=== PATIENT | female | born 1995 | race Caucasian/White ===

== ENCOUNTER 2016-05-03 10:55 | Emergency (ER) | payer OTHER ==
--- NOTE | 2016-05-03 11:13 | ER Document Report ---
ED Medical Screen (RME) - General Stated Complaint: FEVER Notes: yesterday onset fever, chills, vomiting, headache, body aches did receive an influenza vaccine I have greeted and performed a rapid initial assessment of this patient. A comprehensive ED assessment and evaluation of the patient, analysis of test results and completion of the medical decision making process will be conducted by additional ED providers. TRAVEL OUTSIDE OF THE [place] IN LAST 30 DAYS: No - Related Data Allergies/Adverse Reactions: sulfamethoxazole [From Bactrim] Allergy (Verified 05/03/16 11:12) trimethoprim [From Bactrim] Allergy (Verified 05/03/16 11:12) Past Medical History - Immunizations Immunizations up to date: Yes Hx Diphtheria, Pertussis, Tetanus Vaccination: Yes
--- NOTE | 2016-05-03 13:15 | ER Document Report ---
ED General - General Chief Complaint: Flu Symptoms Stated Complaint: FEVER Mode of Arrival: Ambulatory Information source: Patient Notes: 21-year-old female who has received the vaccination for influenza this year presents with complaints of generalized body aches fevers. Patient notes that her son had similar complaints. Patient denies any nausea vomiting. Patient is 13 weeks TRAVEL OUTSIDE OF THE [place] IN LAST 30 DAYS: No - HPI Onset: Yesterday Onset/Duration: Sudden Quality of pain: Achy Severity: Mild Pain Level: Denies Associated symptoms: Body/muscle aches, Nonproductive cough, Fever Exacerbated by: Denies Relieved by: Denies Similar symptoms previously: No Recently seen / treated by doctor: No - Related Data Allergies/Adverse Reactions: sulfamethoxazole [From Bactrim] Allergy (Verified 05/03/16 11:12) trimethoprim [From Bactrim] Allergy (Verified 05/03/16 11:12) Past Medical History - Social History Smoking Status: Never Smoker Cigarette use (# per day): No Chew tobacco use (# tins/day): No Smoking Education Provided: No Frequency of alcohol use: None Drug Abuse: None Family History: Reviewed & Not Pertinent Patient has suicidal ideation: No Patient has homicidal ideation: No Renal/ Medical History: Denies: Hx Peritoneal Dialysis Surgical Hx: Negative - Immunizations Immunizations up to date: Yes Hx Diphtheria, Pertussis, Tetanus Vaccination: Yes Review of Systems - Review of Systems Notes: REVIEW OF SYSTEMS: CONSTITUTIONAL : admits ot fevers EENT: Denies eye, ear, throat, or mouth pain or symptoms. Denies nasal or sinus congestion or discharge. Denies throat, tongue, or mouth swelling or difficulty swallowing. CARDIOVASCULAR: Denies chest pain. Denies palpitations or racing or irregular heart beat. Denies ankle edema. RESPIRATORY: admits to intermittent productive cough GASTROINTESTINAL: Denies abdominal pain or distention. Denies nausea, vomiting , or diarrhea. Denies blood in vomitus, stools, or per rectum. Denies black, tarry stools. Denies constipation. GENITOURINARY: Denies difficulty urinating, painful urination, burning, frequency, blood in urine, or discharge. FEMALE GENITOURINARY: Denies vaginal bleeding, heavy or abnormal periods, irregular periods. Denies vaginal discharge or odor. MUSCULOSKELETAL: admits to body aches SKIN: Denies rash, lesions or sores. HEMATOLOGIC : Denies easy bruising or bleeding. LYMPHATIC: Denies swollen, enlarged glands. NEUROLOGICAL: Denies confusion or altered mental status. Denies passing out or loss of consciousness. Denies dizziness or lightheadedness. Denies headache. Denies weakness or paralysis or loss of use of either side. Denies problems with gait or speech. Denies sensory loss, numbness, or tingling. Denies seizures. PSYCHIATRIC: Denies anxiety or stress. Denies depression, suicidal ideation, or homicidal ideation. ALL OTHER SYSTEMS REVIEWED AND NEGATIVE. Dictation was performed using Intense voice recognition software PHYSICAL EXAMINATION: GENERAL: Well-appearing, well-nourished and in no acute distress. HEAD: Atraumatic, normocephalic. EYES: Pupils equal round and reactive to light, extraocular movements intact, conjunctiva are normal. ENT: Nares patent, oropharynx clear without exudates. Moist mucous membranes. NECK: Normal range of motion, supple without lymphadenopathy LUNGS: Breath sounds clear to auscultation bilaterally and equal. No wheezes rales or rhonchi. HEART: Regular rate and rhythm without murmurs ABDOMEN: Soft, nontender, nondistended abdomen. No guarding, no rebound. No masses appreciated. Female : deferred Musculoskeletal: Normal range of motion, no pitting or edema. No cyanosis. NEUROLOGICAL: Cranial nerves grossly intact. Normal speech, normal gait. Normal sensory, motor exams PSYCH: Normal mood, normal affect. SKIN: Warm, Dry, normal turgor, no rashes or lesions noted. Physical Exam - Vital signs Vitals: Temp Pulse Resp BP Pulse Ox 97.8 F 93 18 110/67 100 05/03/16 11:13 05/03/16 11:13 05/03/16 11:13 05/03/16 11:13 05/03/16 11:13 Course - Re-evaluation Re-evalutation: 05/03/16 13:12 Patient unfortunately is positive for flu, she will be started on Tamiflu otherwise stable for discharge, vital signs are stable After performing a Medical Screening Examination, I estimate there is LOW risk for ACUTE CORONARY SYNDROME, RESPIRATORY FAILURE, SEPSIS OR MENINGITIS, thus I consider the discharge disposition reasonable. The patient and I have discussed the diagnosis and risks, and we agree with discharging home with close follow- up. We also discussed returning to the Emergency Department immediately if new or worsening symptoms occur. We have discussed the symptoms which are most concerning (e.g., changing or worsening pain, trouble swallowing or breathing, neck stiffness, fever) that necessitate immediate return. - Vital Signs Vital signs: Temp Pulse Resp BP Pulse Ox 97.8 F 93 18 110/67 100 05/03/16 11:13 05/03/16 11:13 05/03/16 11:13 05/03/16 11:13 05/03/16 11:13 Discharge - Discharge Clinical Impression: Influenza A, Body aches Condition: Stable Disposition: HOME, SELF-CARE Instructions: Influenza ([facility]) [id number] Additional Instructions: Follow up with your physician tomorrow for further care or return to the ED IMMEDIATELY if symptoms worsen or new concerns occur Prescriptions: Oseltamivir Phosphate [Tamiflu 75 mg Capsule] 75 mg PO BID #10 capsule
[2016-05-03 13:31] LABS: APPEARANCE,URINE SLIGHTLY-CLOUDY; BILIRUBIN,URINE NEGATIVE (NEGATIVE); GLUCOSE, URINE NEGATIVE (NEGATIVE); KETONES,URINE NEGATIVE (NEGATIVE); LEUKOCYTE ESTERASE,URINE MODERATE (NEGATIVE); NITRITE,URINE NEGATIVE (NEGATIVE); PROTEIN,URINE NEGATIVE (NEGATIVE); URINE SPECIFIC GRAVITY 1.017; UROBILINOGEN,URINE NEGATIVE mg/dL (<2.0)
[2016-05-03 13:41] VITALS: BP 101/54
== END 2016-05-03 13:47 | disposition home or self-care (01) ==
LOC: ER 10:55
DX: O23.41 Unspecified infection of urinary tract in pregnancy, first trimester (principal); O98.511 Other viral diseases complicating pregnancy, first trimester; J09.X2 Influenza due to identified novel influenza A virus with other respiratory manifestations; R50.9 Fever, unspecified; M79.1 Myalgia; Z3A.13 13 weeks gestation of pregnancy
CPT/HCPCS: 81001; 87086; 87804; 99283

== ENCOUNTER 2016-09-22 11:54 | Outpatient (CLI) | payer OTHER ==
[2016-09-22 12:48] LABS: APPEARANCE,URINE SLIGHTLY-CLOUDY; BILIRUBIN,URINE NEGATIVE (NEGATIVE); GLUCOSE, URINE NEGATIVE (NEGATIVE); KETONES,URINE NEGATIVE (NEGATIVE); LEUKOCYTE ESTERASE,URINE SMALL (NEGATIVE); NITRITE,URINE NEGATIVE (NEGATIVE); PROTEIN,URINE 30 mg/dL (NEGATIVE); URINE SPECIFIC GRAVITY 1.012; UROBILINOGEN,URINE NEGATIVE mg/dL (<2.0)
--- NOTE | 2016-09-22 12:59 | Non Stress Test Report ---
Non Stress Test Datetime Report Generated by CPN: 09/22/2016 12:59 DEMOGRAPHIC EGA NST: 32.6 INDICATION Indication for Study: Ordered by Provider MONITORING Monitor Explained: Monitor Explained; Test Explained; Patient Verbalized Understanding Time on Monitor: 09/22/2016 12:21 Time off Monitor: 09/22/2016 12:57 NST Duration: 36 NST INTERVENTIONS NST Interventions: PO Hydration Physician Notified NST: C Coreas CNM BABY A: [id number] BABY A Movement : Present Contraction Frequency : x0 FHR Baseline : 130 Accelerations : Prolonged Decelerations : None Variability : Moderate 6-25bpm NST Review: Meets Criteria for Reactive NST NST Review and Verified By : Yvonne Crouch RN NST Results: Reactive NST REPORT Report Trigger: Send Report
[2016-09-22 13:33] LABS: URINE BARBITURATES SCREEN NEGATIVE; URINE METHADONE SCREEN NEGATIVE; URINE OPIATES LOW NEGATIVE; URINE PHENCYCLIDINE SCREEN NEGATIVE
== END 2016-09-22 13:05 | disposition home or self-care (01) ==
LOC: LC 11:54
PROVIDERS: ATTEND Obstetrics & Gynecology
PROC: 4A1HXCZ Monitoring of Products of Conception, Cardiac Rate, External Approach (ICD-10-PCS; principal; 2016-09-22)
DX: O99.89 Other specified diseases and conditions complicating pregnancy, childbirth and the puerperium (principal); M54.9 Dorsalgia, unspecified; Z91.040 Latex allergy status; Z3A.32 32 weeks gestation of pregnancy
CPT/HCPCS: 59025; 80307; 81001

== ENCOUNTER 2016-10-25 15:47 | Outpatient (CLI) | payer OTHER ==
[2016-10-25 16:41] LABS: APPEARANCE,URINE CLOUDY; BILIRUBIN,URINE NEGATIVE (NEGATIVE); GLUCOSE, URINE 50 mg/dL (NEGATIVE); KETONES,URINE NEGATIVE (NEGATIVE); LEUKOCYTE ESTERASE,URINE TRACE (NEGATIVE); NITRITE,URINE NEGATIVE (NEGATIVE); PROTEIN,URINE NEGATIVE (NEGATIVE); URINE SPECIFIC GRAVITY 1.025; UROBILINOGEN,URINE NEGATIVE mg/dL (<2.0)
--- NOTE | 2016-10-25 16:54 | Non Stress Test Report ---
Non Stress Test Datetime Report Generated by CPN: 10/25/2016 16:54 DEMOGRAPHIC EGA NST: 37.4 INDICATION Indication for Study: Ordered by Provider MONITORING Monitor Explained: Monitor Explained; Test Explained; Patient Verbalized Understanding Time on Monitor: 10/25/2016 16:04 Time off Monitor: 10/25/2016 16:54 NST Duration: 50 NST INTERVENTIONS NST Interventions: PO Hydration; Reposition Patient Physician Notified NST: H. Dion, CNM BABY A: [id number] BABY A Movement : Present Contraction Frequency : none FHR Baseline : 135 Accelerations : 15X15 Decelerations : None Variability : Moderate 6-25bpm NST Review: Meets Criteria for Reactive NST NST Review and Verified By : ERICKA Denny Results: Reactive NST REPORT Report Trigger: Send Report
[2016-10-25 17:03] LABS: URINE BARBITURATES SCREEN NEGATIVE; URINE METHADONE SCREEN NEGATIVE; URINE OPIATES LOW NEGATIVE; URINE PHENCYCLIDINE SCREEN NEGATIVE
== END 2016-10-25 17:08 | disposition home or self-care (01) ==
LOC: LC 15:47
PROVIDERS: ATTEND Specialist
PROC: 4A1HXCZ Monitoring of Products of Conception, Cardiac Rate, External Approach (ICD-10-PCS; principal; 2016-10-25)
DX: O99.283 Endocrine, nutritional and metabolic diseases complicating pregnancy, third trimester (principal); E86.0 Dehydration; Z3A.37 37 weeks gestation of pregnancy
CPT/HCPCS: 59025; 80307; 81005

== ENCOUNTER 2016-11-12 11:19 | Inpatient (IN) | payer OTHER ==
[2016-11-12 10:05] LABS: APPEARANCE,URINE SLIGHTLY-CLOUDY; BILIRUBIN,URINE NEGATIVE (NEGATIVE); GLUCOSE, URINE NEGATIVE (NEGATIVE); KETONES,URINE NEGATIVE (NEGATIVE); LEUKOCYTE ESTERASE,URINE TRACE (NEGATIVE); NITRITE,URINE NEGATIVE (NEGATIVE); PROTEIN,URINE NEGATIVE (NEGATIVE); URINE SPECIFIC GRAVITY 1.008; UROBILINOGEN,URINE NEGATIVE mg/dL (<2.0)
[2016-11-12 10:24] LABS: URINE BARBITURATES SCREEN NEGATIVE; URINE METHADONE SCREEN NEGATIVE; URINE OPIATES LOW NEGATIVE; URINE PHENCYCLIDINE SCREEN NEGATIVE
[2016-11-12 11:57] LABS: ABSOLUTE EOSINOPHILS # (AUTO) 0.1 10^3/uL (0.0-0.6); ABSOLUTE LYMPHOCYTES (AUTO) 1.7 10^3/uL (0.5-4.7); ABSOLUTE MONOCYTES (AUTO) 0.8 10^3/uL (0.1-1.4); ABSOLUTE NEUT (AUTO) 7.3 10^3/uL (1.7-8.2); BASOPHILS % (AUTO) 0.4 % (0-2); EOSINOPHILS % (AUTO) 1.5 % (0-6); HEMATOCRIT 36.5 % (36.0-47.0); HEMOGLOBIN 12.4 g/dL (12.0-15.5); HGB HCT DIFFERENCE 0.7; MEAN CORPUSCULAR HEMOGLOBIN 30.7 pg (27.0-33.4); MEAN CORPUSCULAR HGB CONC 33.9 g/dL (32.0-36.0); MEAN CORPUSCULAR VOLUME 91 fl (80-97); MONOCYTES % (AUTO) 7.6 % (3-13); RED BLOOD COUNT 4.02 10^6/uL (3.72-5.28); RED CELL DISTRIBUTION WIDTH 13.5 % (11.5-14.0); SEGMENTED NEUTROPHILS % (AUTO) 73.5 % (42-78)
[2016-11-12] MEDS ORDERED: EPHEDRINE SULFATE INJ 50 MG/1 ML AMPULE ONE (14:52)
[2016-11-12] MEDS ORDERED: FENTANYL/BUPIVACAINE/NS/PF 200 MCG/100 ML RTUINJ EPI ONE (14:52)
[2016-11-12] MEDS ORDERED: BUPIVACAINE HCL 0.25 % INJ/PF (2.5 MG/1 ML) 30 ML VIAL ONE (14:53)
[2016-11-12] MEDS: RINGERS SOLUTION,LACTATED 1,000 ML IV PRN ×3 (15:32→19:36)
[2016-11-12] MEDS ORDERED: OXYTOCIN/NORMAL SALINE 20 UNIT/1,000 ML RTUINJ ONE (15:48)
[2016-11-12] MEDS ORDERED: MISOPROSTOL 0.2 MG TABLET ONE (16:35)
[2016-11-12] MEDS ORDERED: LIDOCAINE 1% INJ-PF (10 MG/ML) 30 ML SDV ONE (16:36)
[2016-11-12] MEDS ORDERED: DIPH/PERTUSS(ACELL)/TETANUS VAC/PF 0.5 ML SYR (>=10YO) IM PRN (17:05)
[2016-11-12] MEDS ORDERED: ZOLPIDEM TARTRATE 5 MG TABLET PO PRN (17:05)
[2016-11-12] MEDS ORDERED: BENZOCAINE/MENTHOL AEROSOL SPRAY 56 ML TOP PRN (17:05)
[2016-11-12] MEDS ORDERED: DIBUCAINE 1% OINTMENT 28 GM TP PRN (17:05)
[2016-11-12] MEDS ORDERED: OXYTOCIN/NORMAL SALINE 1,000 ML IV PRN (17:05)
[2016-11-12] MEDS ORDERED: MEASLES,MUMPS&RUBELLA VACC/PF 0.5 ML VIAL SUBCUT PRN (17:05)
--- NOTE | 2016-11-12 19:12 | Delivery Summary ---
Del Sum A-C Datetime Report Generated by CPN: 11/12/2016 19:12 DELIVERY PERSONNEL DELIVERY PERSONNEL: [id number] Delivery Doctor:: Alma Alva CNM Anesthesiologist:: Harsh Cohen MD Labor and Delivery Nurse:: [place] Simpson RNconcrete paving supervisor Nurse:: Kelly Espinoza RN Nursery Nurse:: Aneta Taveras RN Residential Appliance Repair Technician/OUTDOOR STUDIES DIRECTOR: Angle Talley CST Residential Appliance Repair Technician/OUTDOOR STUDIES DIRECTOR: Ana M Og, ST MATERNAL INFORMATION Delivery Anesthesia: Epidural Medications After Delivery: Pitocin Bolus-Please Comment; Pitocin Drip 20 Units/1000ml NSS Estimated Blood Loss (ml): 300 Maternal Complications: None Provider Comments: SVDVF OA, partial nuchal cord and compound left hand, delivered through cord. vigorous, to mothers abd. Cord clamped x 2 cut per Fob. Cord blood collected. Placenta with trailing membranes, manual exploration done. Fundus firmed, EBL 300 ml. Pitocin infusing. Mother and stable. LABOR SUMMARY EDC: 11/11/2016 00:00 No. Babies in Womb: 1 Attempted: No Labor Anesthesia: Epidural LABOR INFORMATION Reason for Induction: Not Applicable Onset of Labor: 11/12/2016 11:10 Complete Dilatation: 11/12/2016 16:27 Oxytocin: Augmentation Group B Beta Strep: negative Antibiotics # of Doses: 0 Antibiotics Time of Last Dose: n/a Name of Antibiotic Given: n/a Steroids Given: None Reason Steroids Not Administered: Not Applicable MEMBRANES Membranes Rupture Method: Artificial Rupture of Membranes: 11/12/2016 13:33 Length of Rupture (hr): 3.23 Amniotic Fluid Color: Clear Amniotic Fluid Amount: Moderate Amniotic Fluid Odor: Normal STAGES OF LABOR Stage 1 hr: 5 Stage 1 min: 17 Stage 2 hr: 0 Stage 2 min: 20 Stage 3 hr: 0 Stage 3 min: 8 Total Time in Labor hr: 5 Total Time in Labor min: 45 VAGINAL DELIVERY Episiotomy: Right Mediolateral Laceration Extension: N/A Laceration Type: Perineal Other Laceration: clitoral Laceration Repair: Not Applicable Laceration Repair Note: no repairs needed, very superficial lacs Sponge Count Correct: N/A Sharps Count Correct: N/A BABY A INFORMATION Delivery Date/Time: 11/12/2016 16:47 Method of Delivery: Vaginal Born in Route : No : N/A Forceps: N/A Vacuum Extraction: N/A Shoulder Dystocia : No PRESENTATION/POSITION BABY A Presentation: Cephalic Cephalic Presentation: Vertex Vertex Position: Left Occipital Anterior Breech Presentation: N/A PLACENTA INFORMATION BABY A Placenta Delivery Time : 11/12/2016 16:55 Placenta Method of Delivery: Spontaneous Placenta Status: Delivered SCORES BABY A Heart Rate 1 min: >100 bpm Resp Effort 1 min: Good Cry Reflex Irritability 1 min: Grimace Muscle Tone 1 min: Active Motion Color 1 min: Blue/Pale Resuscitation Effort 1 min: Tactile Stimulation SCORE 1 MIN: 7 Heart Rate 5 min: >100 bpm Resp Effort 5 min: Good Cry Reflex Irritability 5 min: Cough or Sneeze or Pulls Away Muscle Tone 5 min: Active Motion Color 5 min: Body [place], Extremities Blue Resuscitation Effort 5 min: N/A SCORE 5 MIN: 9 INFORMATION BABY A Gestational Age at Delivery: 40.1 Gestational Status: Full Term- 39- 40.6 Weeks Outcome : Liveborn Condition : Stable Sex: Female IDENTIFICATION BABY A Infant Verification Date/Time: 11/12/2016 17:10 ID Band Number: [id number] Mother's Name Verified: Yes RN Verifying Infant: Malik Espinoza RN/ Kat Simpson RN WEIGHT/LENGTH BABY A Infant Birthweight (gm): 3460 Weight (lb): 7 Weight (oz): 10 Length (in): 21.00 Infant Length (cm): 53.34 CORD INFORMATION BABY A No. Cord Vessels: 3 Nuchal Cord : partial nuchal Nuchal Cord- Other: Lt compound hand Cord Blood Taken: Yes-For Eval (Mom's Blood Type - or O+) Suction: Mouth; Nose ASSESSMENT BABY A Physical Findings at Delivery: Within Normal Limits Skin to Skin: Yes Skin to Skin Time (min): 2 Transferred To: Remains with Mother BABY B INFORMATION : N/A SIGNATURES Assignment: DO Zunilda Kitchen: with User ID: [email or web address] : with User ID: [email or web address] : I was personally available for consultation and serving as supervising physician for the [facility].
--- NOTE | 2016-11-12 20:14 | Admission Physical ---
Datetime Report Generated by CPN: 11/12/2016 20:13 CURRENT ADMISSION Chief Complaint: Uterine Contractions Indication for Induction: Not Applicable Admit Plan: Admit to Unit ALLERGIES Medication Allergies: Yes Medication Allergies: sulfamethoxazole (09/22/2016); trimethoprim (09/22/2016) Medication Allergies: sulfamethoxazole (05/03/2016); trimethoprim (05/03/2016) Latex: Latex Allergies Food Allergies: n/a Environmental Allergies: n/a OBSTETRICAL HISTORY EDC: 11/11/2016 00:00 : 2 Para: 1 Term: 1 : 0 SAB: 0 IAB: 0 Ectopic: 0 Livin Cesareans: 0 VBACs: 0 Multiple Births: 0 Gestational Diabetes: No Rh Sensitization: No Incompetent Cervix: No MARY: No Infertility: No ART Treatment: No Uterine Anomaly: No IUGR: No Hx Previous C/S: No Macrosomia: No Hx Loss/Stillborn: No PIH: No Hx : No Placenta Previa/Abruption: No Depression/PP Depression: No PTL/PROM: No Post Hemorrhage: No Current Procedures: Ultrasound; NST Obstetrical History Comments: G1- boy G2- current SEE RECORDS Alcohol: No Marijuana : No Cocaine: No Other Illicit Drugs: No Cigarettes: Never Smoker. [id number] MEDICAL HISTORY Diabetes: No Blood Transfusion: No Pulmonary Disease (Asthma, TB): No Breast Disease: No Hypertension: No Manager Chemistry Surgery: No Heart Disease: No Hosp/Surgery: No Autoimmune Disorder: No Anesthetic Complications: No Kidney Disease: No Abnormal Pap Smear: No Neuro/Epilepsy: No Psychiatric Disorders: No Other Medical Diseases: No Hepatitis/Liver Disease: No Significant Family History: No Varicosities/Phlebitis: No Trauma/Violence : No Thyroid Dysfunction: No INFECTIOUS HISTORY Gonorrhea: No Genital Herpes: No Chlamydia: No Tuberculosis: No Syphilis: No Hepatitis: No HIV/AIDS Exposure: No Rash or Viral Illness: No HPV: No PHYSICAL EXAM General: Normal HEENT: Deferred Neurologic: Normal Thyroid: Deferred Heart: Normal Lungs: Normal Breast: Deferred Back: Deferred Abdomen: Normal Genitourinary Exam: Normal Extremities: Normal DTRs: Deferred Pelvic Type: Adequate Vital Signs: Reviewed VAGINAL EXAM Dilatation: 5 Effacement: 80 Station: -1 MEMBRANES Membranes: Ruptured Amniotic Fluid Color: Clear FETUS A EGA: 40.1 Monitoring: External US FHR- Baseline: 135 Accelerations: 15X15 Decelerations: None Presentation: Vertex PLANS FOR LABOR AND DELIVERY Labor and Delivery: None Pain Management: Epidural Feeding Preference: Breast Benefit of Breast Feed Discussed: Yes Circumcision: N/A INFORMED CONSENT Assignment: Quique Ferreira DO Signature: with User ID: [email or web address] : with User ID: [email or web address]
[2016-11-12] MEDS: FERROUS SULFATE 325 MG TABLET PO SCH (20:48)
[2016-11-12] MEDS: DOCUSATE SODIUM 100 MG CAPSULE PO SCH (20:48)
[2016-11-12] MEDS: IBUPROFEN 800 MG TABLET PO SCH (21:39)
[2016-11-13] MEDS ORDERED: OXYCODONE-ACETAMINOPHEN 5-325 MG TABLET ONE (03:26)
[2016-11-13] MEDS: IBUPROFEN 800 MG TABLET PO SCH ×3 (06:00→21:12)
[2016-11-13 09:03] LABS: HEMATOCRIT 33.8 % (36.0-47.0); HEMOGLOBIN 11.5 g/dL (12.0-15.5); HGB HCT DIFFERENCE 0.7; MEAN CORPUSCULAR VOLUME 91 fl (80-97); RED CELL DISTRIBUTION WIDTH 13.6 % (11.5-14.0)
[2016-11-13] MEDS: DOCUSATE SODIUM 100 MG CAPSULE PO SCH ×2 (10:41→17:26)
[2016-11-13] MEDS: SENNOSIDES/DOCUSATE 8.6-50 MG 1 EACH TABLET PO SCH (10:42)
[2016-11-13] MEDS: FERROUS SULFATE 325 MG TABLET PO SCH ×2 (10:42→17:26)
[2016-11-13] MEDS: PRENATAL VITAMIN W-O CA NO5/FE FUMARATE/FA CAPSULE PO SCH (10:43)
--- NOTE | 2016-11-13 11:45 | PDOC PROGRESS REPORT ---
Subjective-OB Subjective: Post Delivery Day: 21 year old. Denies any needs at this time. Pt doing well, no problems. Reports light bleeding, regular diet and voiding well. Physical Exam (OB) Vital Signs: Temp Pulse Resp BP Pulse Ox 97.7 F 66 15 95/55 L 97 11/13/16 07:26 11/13/16 07:26 11/13/16 07:26 11/13/16 07:26 11/13/16 07:26 Intake & Output 11/12/16 11/13/16 11/14/16 06:59 06:59 06:59 Weight 68 kg - Lochia Lochia Amount: Small 10-25 ml Lochia Color: Rubra/Red - Abdomen Description: Soft, Round Hernia Present: No Fundal Description: Firm, Midline Fundal Height: u/u - u/2 Objective-Diagnostic Laboratory: 11/13/16 08:56 11/12/16 11/12/16 11/13/16 11:36 11:36 08:56 WBC 10.0 10.0 RBC 4.02 3.70 L Hgb 12.4 11.5 L Hct 36.5 33.8 L MCV 91 91 MCH 30.7 31.0 MCHC 33.9 34.0 RDW 13.5 13.6 Plt Count 184 141 L Seg Neutrophils % 73.5 Lymphocytes % 17.0 Monocytes % 7.6 Eosinophils % 1.5 Basophils % 0.4 Absolute Neutrophils 7.3 Absolute Lymphocytes 1.7 Absolute Monocytes 0.8 Absolute Eosinophils 0.1 Absolute Basophils 0.0 Blood Type O POSITIVE Antibody Screen NEGATIVE Assessment and Plan(PN) - Assessment and Plan (1) Vaginal delivery Is this a current diagnosis for this admission?: Yes - Time Spent with Patient Time with patient: Less than 15 minutes Medications reviewed and adjusted accordingly: Yes - Disposition Anticipated Discharge: Home Within: within 24 hours
[2016-11-14] MEDS: IBUPROFEN 800 MG TABLET PO SCH (06:04)
[2016-11-14 08:18] VITALS: BP 107/57
[2016-11-14] MEDS: PRENATAL VITAMIN W-O CA NO5/FE FUMARATE/FA CAPSULE PO SCH (09:31)
[2016-11-14] MEDS: SENNOSIDES/DOCUSATE 8.6-50 MG 1 EACH TABLET PO SCH (09:31)
[2016-11-14] MEDS: FERROUS SULFATE 325 MG TABLET PO SCH (09:31)
[2016-11-14] MEDS: DOCUSATE SODIUM 100 MG CAPSULE PO SCH (09:31)
--- NOTE | 2016-11-14 11:28 | PDOC DISCHARGE SUMMARY ---
Final Diagnosis Discharge Date: 11/14/16 - Final Diagnosis (1) Vaginal delivery Is this a current diagnosis for this admission?: Yes Discharge Data - Discharge Medication Home Medications: Pnv No.122/Iron/Folic Acid [ Multi Tablet] 1 tab PO DAILY 09/22/16 Reason(s) for Admission: Onset of Labor Intrapartum Procedure(s): Spontaneous Vaginal Delivery Complication(s): Laceration-Perineal, Other Laceration-Degree: 1st - Diagnosis Test Laboratory: Temp Pulse Resp BP Pulse Ox 97.7 F 66 15 95/55 L 97 11/13/16 07:26 11/13/16 07:26 11/13/16 07:26 11/13/16 07:26 11/13/16 07:26 11/12/16 11/12/16 09:23 11:36 RBC 4.02 Hgb 12.4 Hct 36.5 Urine Opiates Screen NEGATIVE - Discharge information/Instructions Discharge Activity: Balance Activity w/Rest, Pelvic Rest Discharge Diet: Regular Disposition: HOME, SELF-CARE Follow up with: [facility] in: 4, Weeks
== END 2016-11-14 12:10 | disposition home or self-care (01) | DRG 775 ==
LOC: LC 11:19 → LR 11:20 → 2S 19:48
PROVIDERS: ADMIT Obstetrics & Gynecology; ATTEND Obstetrics & Gynecology
PROC: 10E0XZZ Delivery of Products of Conception, External Approach (ICD-10-PCS; principal; 2016-11-12)
PROC: 0W8NXZZ Division of Female Perineum, External Approach (ICD-10-PCS; 2016-11-12)
PROC: 4A1HXCZ Monitoring of Products of Conception, Cardiac Rate, External Approach (ICD-10-PCS; 2016-11-12)
DX: O69.81X0 Labor and delivery complicated by cord around neck, without compression, not applicable or unspecified (principal); O70.0 First degree perineal laceration during delivery; O32.6XX0 Maternal care for compound presentation, not applicable or unspecified; Z37.0 Single live birth; Z3A.40 40 weeks gestation of pregnancy
CPT/HCPCS: 36415; 80307; 81005; 85025; 85027; 86592; 86850; 86900; 86901; 94760; J2590; J3490

== ENCOUNTER 2016-11-19 18:04 | Emergency (ER) | payer OTHER ==
[2016-11-19 18:08] VITALS: BP 117/70
--- NOTE | 2016-11-19 19:13 | ER Document Report ---
ED General - General Chief Complaint: Pain All Over Stated Complaint: COLD SWEATS,CHILLS,BODY ACHES Time Seen by Provider: 11/19/16 18:57 Mode of Arrival: Ambulatory Information source: Patient Notes: 21-year-old female presents to ED for body aches all over hot and cold flashes with sweats. States right this minute she feels like she is burning up but she does not have a fever. She states she had similar symptoms 3 years ago with her last child and at that time she had a UTI. She said that her milk is starting to decrease and last time her milk completely dried up with the last UTI. States she is also having pain whenever she needs to have a bowel movement just before she has a bowel movement and during the bowel movement and then the pain goes away. She denies any nausea or vomiting. TRAVEL OUTSIDE OF THE [place] IN LAST 30 DAYS: No - HPI Onset: Yesterday Onset/Duration: Gradual Quality of pain: Achy - Body aches Severity: Mild Pain Level: 2 Associated symptoms: Body/muscle aches, Chills, Sweating. denies: Fever, Nausea , Vomiting Exacerbated by: Other - when having a bm Relieved by: Denies Similar symptoms previously: Yes - 3 yrs ago with last child Recently seen / treated by doctor: Yes - childbirth 7 days ago - Related Data Allergies/Adverse Reactions: sulfamethoxazole [From Bactrim] Allergy (Verified 11/19/16 18:08) trimethoprim [From Bactrim] Allergy (Verified 11/19/16 18:08) Past Medical History - General Information source: Patient - Social History Smoking Status: Never Smoker Cigarette use (# per day): No Chew tobacco use (# tins/day): No Smoking Education Provided: No Frequency of alcohol use: None Drug Abuse: None Occupation: none Lives with: Family Family History: Arthritis, CAD, Hyperlipidemia, Hypertension Patient has suicidal ideation: No Patient has homicidal ideation: No - Past Medical History Cardiac Medical History: Reports: None Pulmonary Medical History: Reports: None EENT Medical History: Reports: None Neurological Medical History: Reports: None Endocrine Medical History: Reports: None Renal/ Medical History: Reports: None Malignancy Medical History: Reports: None GI Medical History: Reports: None Musculoskeltal Medical History: Reports None Skin Medical History: Reports None Psychiatric Medical History: Reports: None Traumatic Medical History: Reports: None Infectious Medical History: Reports: None Surgical Hx: Negative Past Surgical History: Reports: None - Immunizations Immunizations up to date: Yes Hx Diphtheria, Pertussis, Tetanus Vaccination: Yes Review of Systems - Review of Systems Constitutional: Chills, Recent illness EENT: No symptoms reported Cardiovascular: No symptoms reported Respiratory: No symptoms reported Gastrointestinal: No symptoms reported Genitourinary: No symptoms reported Female Genitourinary: No symptoms reported Musculoskeletal: Other - body aches Skin: No symptoms reported Hematologic/Lymphatic: No symptoms reported Neurological/Psychological: No symptoms reported -: Yes All other systems reviewed and negative Physical Exam - Vital signs Vitals: Temp Pulse Resp BP Pulse Ox 98.2 F 73 16 117/70 97 11/19/16 18:07 11/19/16 18:07 11/19/16 18:07 11/19/16 18:07 11/19/16 18:07 Interpretation: Normal - General General appearance: Appears well, Alert - HEENT Head: Normocephalic, Atraumatic Eyes: Normal Pupils: PERRL - Respiratory Respiratory status: No respiratory distress Chest status: Nontender Breath sounds: Normal Chest palpation: Normal - Cardiovascular Rhythm: Regular Heart sounds: Normal auscultation Murmur: No - Abdominal Inspection: Normal Distension: No distension Bowel sounds: Normal Tenderness: Nontender Organomegaly: No organomegaly - Back Back: Normal, Nontender - Extremities General upper extremity: Normal inspection, Nontender, Normal color, Normal ROM , Normal temperature General lower extremity: Normal inspection, Nontender, Normal color, Normal ROM , Normal temperature, Normal weight bearing. No: Boris's sign - Neurological Neuro grossly intact: Yes Cognition: Normal Orientation: AAOx4 Jessica Coma Scale Eye Opening: Spontaneous Homer Coma Scale Verbal: Oriented Jessica Coma Scale Motor: Obeys Commands Homer Coma Scale Total: 15 Speech: Normal Motor strength normal: LUE, RUE, LLE, RLE Sensory: Normal - Psychological Associated symptoms: Normal affect, Normal mood - Skin Skin Temperature: Warm Skin Moisture: Dry Skin Color: Normal Course - Re-evaluation Re-evalutation: 11/19/16 22:48 Discussed you and report with Dr. Olmstead she recommended putting patient Macrobid and have her follow-up with [facility]. Urine culture was sent. - Vital Signs Vital signs: Temp Pulse Resp BP Pulse Ox 98.2 F 73 16 117/70 97 11/19/16 18:07 11/19/16 18:07 11/19/16 18:07 11/19/16 18:07 11/19/16 18:07 - Laboratory Laboratory results interpreted by me: 11/19/16 19:20 Urine Blood MODERATE H Ur Leukocyte Esterase SMALL H Discharge - Discharge Clinical Impression: UTI (urinary tract infection) Qualifiers: Urinary tract infection type: site unspecified Hematuria presence: with hematuria Qualified Code(s): N39.0 - Urinary tract infection, site not specified Condition: Stable Disposition: HOME, SELF-CARE Additional Instructions: URINARY TRACT INFECTION: Your evaluation indicates that you have a urinary tract infection. This is due to germs growing in the bladder. This is a common problem. This infection usually responds quickly to antibiotics. Your antibiotic should be taken exactly as prescribed. Drink plenty of fluids -- three to four quarts a day. Occasionally, a bladder anesthetic will be prescribed to help stop the feeling of urgency until the antibiotic has a chance to clear the infection. This may cause your urine to be dark orange. Certain urine infections require a culture. If the doctor obtained a culture, the results will be back in two days. You should call to see if a change in treatment is needed. A repeat urinalysis after you finish treatment is often recommended. The physician will let you know if further testing is required. Call the doctor if you develop fever, chills, flank pain, inability to urinate, or blood in the urine. NITROFURANTOIN (MACRODANTIN, MACROBID): You have received a prescription for nitrofurantoin (Macrodantin). This antibiotic is used for urinary tract infections. Women who are or nursing should notify the physician before taking this medicine. If you have ever had a problem caused by this medication in the past, be sure the physician is aware of it. Common side effects of this medicine include nausea, vomiting, or decreased appetite. Notify your physician if these side effects become severe. Immediately stop this medicine and call the physician if you develop cough , shortness of breath, chest pain, weakness, jaundice (yellow color of the skin and whites of the eyes), or a skin rash. Please ncrease your fluids by mouth to increase your milk production. Called your [facility] on Tuesday to schedule a follow-up appointment. A urine culture was sent of your urine your [facility]SE [facility] can follow-up this result with you. FOLLOW-UP CARE: If you have been referred to a physician for follow-up care, call the physician s office for an appointment as you were instructed or within the next two days. If you experience worsening or a significant change in your symptoms, notify the physician immediately or return to the Emergency Department at any time for re-evaluation. Prescriptions: Nitrofurantoin/Nitrofuran Mac [Macrobid 100 mg Capsule] 1 tab PO BID #10 capsule Referrals: GEORGIANA ANNE MD [Primary Care Provider] - Follow up as needed [facility] [Provider Group] - Follow up as needed
[2016-11-19 19:44] LABS: APPEARANCE,URINE SLIGHTLY-CLOUDY; BILIRUBIN,URINE NEGATIVE (NEGATIVE); GLUCOSE, URINE NEGATIVE (NEGATIVE); KETONES,URINE NEGATIVE (NEGATIVE); LEUKOCYTE ESTERASE,URINE SMALL (NEGATIVE); NITRITE,URINE NEGATIVE (NEGATIVE); PROTEIN,URINE NEGATIVE (NEGATIVE); URINE SPECIFIC GRAVITY 1.014; UROBILINOGEN,URINE NEGATIVE mg/dL (<2.0)
[2016-11-19] MEDS ORDERED: CEFTRIAXONE INJ 1000 MG VIAL IM ONE (19:54)
[2016-11-19] MEDS ORDERED: LIDOCAINE 1% INJ-PF (10 MG/ML) 30 ML SDV INJ ONE (19:54)
[2016-11-19] MEDS ORDERED: NITROFURANTOIN MONOHYD/M-CRYST 100 MG CAPSULE PO ONE (19:57)
== END 2016-11-19 20:00 | disposition home or self-care (01) ==
LOC: ER 18:04
DX: N39.0 Urinary tract infection, site not specified (principal); M79.1 Myalgia
CPT/HCPCS: 99283; 87086; 81001; J8499

== ENCOUNTER 2016-12-03 17:55 | Emergency (ER) | payer OTHER ==
--- NOTE | 2016-12-03 18:34 | ER Document Report ---
ED Medical Screen (RME) - General Chief Complaint: Abdominal Pain Stated Complaint: VOMITTING Time Seen by Provider: 12/03/16 18:33 TRAVEL OUTSIDE OF THE [place] IN LAST 30 DAYS: No - HPI Notes: 12/03/16 18:34 for approximately 3 weeks feeling unwell for 1 week fever chills nausea with some possible mastitis. - Related Data Allergies/Adverse Reactions: sulfamethoxazole [From Bactrim] Allergy (Verified 11/19/16 18:08) trimethoprim [From Bactrim] Allergy (Verified 11/19/16 18:08) Past Medical History Renal/ Medical History: Denies: Hx Peritoneal Dialysis - Immunizations Immunizations up to date: Yes Hx Diphtheria, Pertussis, Tetanus Vaccination: Yes Review of Systems - Review of Systems Constitutional: Other - Nausea vomiting feeling unwell Physical Exam - Vital signs Vitals: Temp Pulse Resp BP Pulse Ox 99.8 F 98 16 115/56 L 99 12/03/16 18:12 12/03/16 18:12 12/03/16 18:12 12/03/16 18:12 12/03/16 18:12 - Respiratory Respiratory status: No respiratory distress Chest status: Nontender Breath sounds: Normal Chest palpation: Normal Course - Vital Signs Vital signs: Temp Pulse Resp BP Pulse Ox 99.8 F 98 16 115/56 L 99 12/03/16 18:12 12/03/16 18:12 12/03/16 18:12 12/03/16 18:12 12/03/16 18:12
[2016-12-03 18:59] LABS: APPEARANCE,URINE CLEAR; BILIRUBIN,URINE NEGATIVE (NEGATIVE); GLUCOSE, URINE NEGATIVE (NEGATIVE); KETONES,URINE NEGATIVE (NEGATIVE); LEUKOCYTE ESTERASE,URINE TRACE (NEGATIVE); NITRITE,URINE NEGATIVE (NEGATIVE); PROTEIN,URINE NEGATIVE (NEGATIVE); URINE SPECIFIC GRAVITY 1.015; UROBILINOGEN,URINE NEGATIVE mg/dL (<2.0)
--- NOTE | 2016-12-03 19:20 | ER Document Report ---
ED GI/ - General Chief Complaint: Abdominal Pain Stated Complaint: VOMITTING Time Seen by Provider: 12/03/16 18:33 Mode of Arrival: Ambulatory Information source: Patient Notes: Patient is a 21-year-old female who is 3 weeks and breast-feeding who presents to the ER today for 1 week of "not feeling well." She describes few days of body aches, chills, nausea and then one episode of vomiting today with some redness, tenderness to the right breast. Patient states that she has been trying to have the baby feed off that breast to help but it's gotten more tender today. 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 She denies fever that she knows of. TRAVEL OUTSIDE OF THE [place] IN LAST 30 DAYS: No - Related Data Allergies/Adverse Reactions: sulfamethoxazole [From Bactrim] Allergy (Verified 12/03/16 18:35) trimethoprim [From Bactrim] Allergy (Verified 12/03/16 18:35) Past Medical History - General Information source: Patient - Social History Smoking Status: Never Smoker Chew tobacco use (# tins/day): No Frequency of alcohol use: None Drug Abuse: None Family History: Arthritis, CAD, Hyperlipidemia, Hypertension Patient has suicidal ideation: No Patient has homicidal ideation: No Renal/ Medical History: Denies: Hx Peritoneal Dialysis Surgical Hx: Negative - Immunizations Immunizations up to date: Yes Hx Diphtheria, Pertussis, Tetanus Vaccination: Yes Review of Systems - Review of Systems Constitutional: See HPI EENT: No symptoms reported Cardiovascular: No symptoms reported Respiratory: No symptoms reported Gastrointestinal: See HPI Genitourinary: No symptoms reported Female Genitourinary: See HPI Musculoskeletal: No symptoms reported Skin: No symptoms reported Hematologic/Lymphatic: No symptoms reported Neurological/Psychological: No symptoms reported Physical Exam - Vital signs Vitals: Temp Pulse Resp BP Pulse Ox 99.8 F 98 16 115/56 L 99 12/03/16 18:12 12/03/16 18:12 12/03/16 18:12 12/03/16 18:12 12/03/16 18:12 - Notes Notes: PHYSICAL EXAMINATION: GENERAL: Well-appearing and in no acute distress. HEAD: Atraumatic, normocephalic. EYES: Pupils equal round and reactive to light, extraocular movements intact, sclera anicteric, conjunctiva are normal. ENT: ear canals without erythema or foreign body, TMs pearly angeles with good bony landmarks, nares patent, oropharynx clear without exudates. Moist mucous membranes. NECK: Normal range of motion, supple without lymphadenopathy LUNGS: CTAB and equal. No wheezes rales or rhonchi. HEART: Regular rate and rhythm without murmurs ABDOMEN: Soft, no tenderness. No guarding, no rebound BACK: no vertebral tenderness, normal ROM GI/: no CVA tenderness EXTREMITIES: Normal range of motion, no pitting edema. No cyanosis. NEUROLOGICAL: Cranial nerves grossly intact. Normal sensory/motor exams. PSYCH: Normal mood, normal affect. SKIN: Warm, Dry, normal turgor, erythema, tenderness and warmth to right breast , right upper and lower quadrants not including nipple, no fluctuance or drainage Course - Re-evaluation Re-evalutation: 12/03/16 19:28 Urinalysis revealed small leukocytes. I will place patient on dicloxacillin for mastitis. I did educate her about mastitis. - Vital Signs Vital signs: Temp Pulse Resp BP Pulse Ox 99.8 F 98 16 115/56 L 99 12/03/16 18:12 12/03/16 18:12 12/03/16 18:12 12/03/16 18:12 12/03/16 18:12 - Laboratory Laboratory results interpreted by me: 12/03/16 18:45 Ur Leukocyte Esterase TRACE H Discharge - Discharge Clinical Impression: Mastitis Condition: Stable Disposition: HOME, SELF-CARE Instructions: Mastitis ([facility]) Additional Instructions: Return immediately for any new or worsening symptoms. Follow up with primary care provider, call tomorrow to make followup appointment. Prescriptions: Dicloxacillin Sodium 500 mg PO QID #40 capsule
[2016-12-03] MEDS ORDERED: DICLOXACILLIN SODIUM 250 MG CAPSULE PO ONE (19:30)
[2016-12-03 19:44] VITALS: BP 101/57
== END 2016-12-03 19:44 | disposition home or self-care (01) ==
LOC: ER 17:55
DX: O91.22 Nonpurulent mastitis associated with the puerperium (principal); O90.89 Other complications of the puerperium, not elsewhere classified; R11.2 Nausea with vomiting, unspecified; R68.83 Chills (without fever); R10.30 Lower abdominal pain, unspecified; Z88.1 Allergy status to other antibiotic agents
CPT/HCPCS: 99283; 81001; J3490